=== PATIENT | female | born 1960 | race Caucasian/White ===

== ENCOUNTER 2018-05-12 15:30 | Inpatient (IN) | payer OTHER, SELFPAY ==
[2018-05-12 15:45] VITALS: BP 143/74; PULSE 90; RESP 16; TEMP 37.3; O2SAT 100
[2018-05-12 15:52] VITALS: BMI 17.2
--- NOTE | 2018-05-12 18:38 | PM.HP.1 ---
History of Present Illness Date Patient Seen: 05/12/18 Chief complaint: CELLULITIS Narrative: Shyla Bender is a 57-year-old female with a past medical history significant for collagenous colitis status post several courses of glucocorticoids and depression who was directly admitted from her PCP Dr. Jammie Hamm's office for right leg cellulitis failed outpatient treatment. The patient was bit by a Iranian bulldog 13 days ago while at a dog park. She reports that it began getting red and tender so she went to Dr. Hamm's office who she is established with and was started on Augmentin 05/09/2018. She has not missed a dose. She endorses throbbing severe pain with standing but has very little pain associated while sitting or lying down. She showed me pictures of her cellulitis the last 2 days for which the progression is apparent. She returned to her PCP who instructed the patient to go to the ED for which she was hesitant, prompting the request for direct admission. She endorses headache, malaise, and mild nausea that she relates to Augmentin. She has history of collagenous colitis and usually has 2 bowel movements per day. She reports increased frequency and now watery diarrhea 5x/day. She has no history of C difficile colitis. She has been treated for collagenous colitis with several courses of glucocorticoids with the most recent 4 months ago. She has no other issues or complaints. She denies chest pain, shortness of breath, abdominal pain, vomiting, fever, chills, dysuria, or constipation. Patient History Medical History Anxiety (Acute) Collagenous colitis (Acute) Depression (Acute) Surgical History H/O esophagogastroduodenoscopy (Acute) History of appendectomy (Acute) History of section (Acute) Hx of colonoscopy (Acute) Family History Other Colitis, chronic, ulcerative IBS (irritable bowel syndrome) Social History household members: spouse Smoking Status: Never smoker alcohol intake: current Family & Social History Family History Father Idiopathic pulmonary fibrosis Mother Rheumatoid arthritis Ductal carcinoma in situ (DCIS) of breast Other Colitis, chronic, ulcerative IBS (irritable bowel syndrome) Social History: household members spouse Prior Living Arrangements House The patient is been for 14 years. She has 2 adult sons who were both healthy. She recently moved to the area from [place], [place]. 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 Safety & Behavioral: Feels Safe in Current Yes Environment Been Physically Hurt or No Threatened By a Person Suicidal Ideation Description None Suicide Plan Description No Plan Tobacco & Substance use: Smoking Status Never smoker alcohol intake current alcohol intake frequency 2 drinks per day Meds Home Medications Medication Instructions Recorded Confirmed Type Augmentin 875 mg PO BID 05/12/18 05/12/18 History bupropion HCl 75 mg/day PO DAILY 05/12/18 05/12/18 History Allergies Allergy/AdvReac Type Severity Reaction Status Date / Time No Known Drug Allergies Allergy Verified 05/12/18 16:15 Review of Systems Review of Systems A 10 system comprehensive review of systems was conducted with the patient and found to be negative except as above in the History of Present Illness. Exam Vital Signs (past 8 hours): - 05/12/18 15:45 Temperature 99.1 F Pulse Rate 90 Respiratory Rate 16 Blood Pressure 143/74 H Pulse Oximetry 100 Oxygen Flow Rate 0 Narrative Exam Narrative: General: Middle-aged petite female sitting in bed and in no acute distress, well-developed, well-nourished, appropriately interactive. HEENT: Normocephalic, atraumatic. External ears without defect. Pupils equal, round, and reactive to light. Anicteric sclerae, moist conjunctivae, and no lid lag. Oropharynx free of erythema and cobble stoning with moist mucosa. Neck: Supple with full range of motion. No jugular venous distension. No bruits. No lymphadenopathy or thyromegaly. Cardiovascular: Regular rate and rhythm without murmurs, rubs, or gallops appreciated Pulmonary: Clear to auscultation bilaterally without crackles, wheezes, or rhonchi. Normal respiratory effort with no use of accessory muscles. Abdomen: Soft, bowel sounds present, nontender, nondistended. No hepatosplenomegaly or masses appreciated. Extremities: No clubbing, cyanosis, or edema. Erythematous and circular area on right lateral leg that is approximately 4 cm in diameter, indurated with mild fluctuance, significantly tender to palpation small scab distally were puncture occurred. Traced by nursing staff. Skin: Normal temperature, turgor, and texture; no rash, ulcers, or subcutaneous nodules appreciated. Neurological: Cranial nerves grossly intact. Normal muscle strength, tone, and bulk. Reflexes, coordination, and sensory function within normal limits. No known gait impairment. Psychiatric: Normal mood and affect. Alert and oriented to person, place, and time. Assessment & Plan Assessment & Plan narrative: Shyla Bender is a 57-year-old female with a past medical history significant for collagenous colitis status post several courses of glucocorticoids and depression who was directly admitted from her PCP Dr. Jammie Hamm's office for right leg cellulitis failed outpatient treatment. 1. Acute non-purulent cellulitis with possible fluid collection vs. abscess, secondary to canine bite, present on admission. Active. -Patient was bitten by a dog and the dog park 13 days ago and was started on Augmentin on 05/09/2018 by PCP with progression of erythema and increased tenderness to palpation. -Ordered ceftriaxone 2 g daily and clindamycin 600 mg every 8 hr. In addition, ordered probiotic 3 times daily with meals. -Ordered C difficile as patient has had increased 5x/day watery diarrhea since starting Augmentin. -Ordered wound care consult however not available on the weekends. -Ordered surgical consult for possible I&D vs conservative treatment as there is an indurated area with mild fluctuance likely circulation representative of fluid collection. We appreciate their time and recommendations. -Continue conservative treatment with elevation and ice. 2. Depression, chronic, present on admission. Stable. -Continue Wellbutrin 75 mg. Depression well controlled. 3. Alcohol use, chronic, present on admission. Stable. -Patient reports 2 glasses of wine nightly. Recommended cutting back to 1 glass per night. 4. Underweight, chronic, present on admission. Stable. -Patient reports she has been petite all her life and her twin sister is identical in size and weight. Patient reports good appetite. She does exercise 3-4 times per week but not excessively. Likely patient's normal body habitus. Patient is admitted under inpatient status with expected length of stay greater than 2 midnights due to severity of presenting symptoms, risk of adverse event, and complexity of treatment plan. Quality VTE Deep Vein Thrombosis/Pulmonary Embolism Present on Admission: No
[2018-05-12] MEDS: CLINDAMYCIN 600 MG/50 ML PIGGYBACK 50 MG IV (19:07)
--- NOTE | 2018-05-12 19:07 | PM.CN ---
History of Present Illness Date Patient Seen: 05/12/18 Time Patient Seen: 19:07 Chief complaint: CELLULITIS Reason for consult: dog bite Requesting provider: Cecilia Joseph Narrative: 57-year-old female who suffered a dog bite 13 days ago and the local dog park to her right calf region. Dog was not known to her but did belong to another individual at the dog park. Breed was a Arabic bulldog. She suffered a single bite. No significant bleeding. She had localized pain and tenderness which became slightly more pronounced in the last 4 or 5 days. She was seen by her primary care physician in the clinic who prescribed Augmentin. She has been on the Augmentin for 3 days then return to the office with no significant change in her symptoms. She was directly admitted from her physician's office earlier today for planned intravenous antibiotics. On further history currently patient denies any fever or chills. No nausea or vomiting. Her major complaint remains throbbing pain around the right calf when she is in a standing position or ambulating. No drainage from the area. No tissue loss at the time of the event. She suffered no other injuries. She is unaware of the dog's vaccination status. [facility] Medical History Anxiety (Acute) Collagenous colitis (Acute) Surgical History History of appendectomy (Acute) History of section (Acute) Family History Other Colitis, chronic, ulcerative IBS (irritable bowel syndrome) Social History household members: spouse Smoking Status: Never smoker alcohol intake: current Family History Other Colitis, chronic, ulcerative IBS (irritable bowel syndrome) Social History household members: spouse Smoking Status: Never smoker alcohol intake: current Meds Home Medications Medication Instructions Recorded Confirmed Type Augmentin 875 mg PO BID 05/12/18 05/12/18 History bupropion HCl 75 mg/day PO DAILY 05/12/18 05/12/18 History Allergies Allergy/AdvReac Type Severity Reaction Status Date / Time No Known Drug Allergies Allergy Verified 05/12/18 16:15 Review of Systems Review of Systems All systems reviewed & are unremarkable except as noted in HPI and below Exam Vital Signs (past 8 hours): - 05/12/18 15:45 Temperature 99.1 F Pulse Rate 90 Respiratory Rate 16 Blood Pressure 143/74 H Pulse Oximetry 100 Oxygen Flow Rate 0 Narrative Exam Narrative: Well-nourished well-developed female sitting comfortably in bed in no acute distress. Alert oriented x3. She is in good spirits. She does not appear acutely ill. She is seen with the assistance of the attending nurseTrish Patient is afebrile with no tachycardia. Regular rate and rhythm She has full range of motion of all extremities without any deficits. Light touch is grossly intact throughout the entire right foot, ankle, calf, and knee. Dorsiflexion of the right ankle is normal. Right calf is otherwise soft without significant edema. She has an approximately 4 x 5 cm erythematous lesion consistent with bite on the right posterolateral calf with no tissue defect. No necrosis of the skin. Minimal cellulitis. Center of the lesion shows some mild ecchymosis and underlying probable hematoma but no discrete fluctuance. Border of the lesion has been marked. Objective Labs Result Diagrams: 05/12/18 19:02 05/12/18 19:02 Labs: No radiographic studies for review Above laboratory studies pending Assessment & Plan Assessment & Plan narrative: 57-year-old female now nearly 2 weeks status post dog bite injury to the right calf with old small hematoma and overlying inflammatory reaction currently. At the moment her findings and symptoms are most consistent with hematoma superficially. I appreciate no other injury from a neurovascular standpoint. Certainly no evidence of compartment syndrome or other issues. She has no necrotic tissue requiring sharp debridement at the moment. I do not appreciate an obvious abscess that requires incision and drainage. However, I counseled her that she may not respond to the intravenous antibiotics she will receive during this admission in which case we would need to drain the area to facilitate healing. If the lesion improves then obviously we would continue with non operative management. I also advised her that there is a small possibility the hematoma could develop into a potential abscess with surrounding cellulitis despite intravenous antibiotics and incision and drainage with debridement and local wound care would be indicated under those circumstances. If her tetanus is not current that she may require immunization during this admission as well. All questions were otherwise answered to her satisfaction, and she voiced understanding. We will continue to follow her during this admission.
[2018-05-12 19:08] LABS: Add Manual Diff / Slide Review NO; Basophils Absolute Auto 100 /uL (0-100); Basophils Percent Auto 0.7 % (0-2); Eosinophils Absolute Auto 200 /uL (0-450); Hematocrit 38.5 % (36-46); Hemoglobin 12.9 g/dL (12.0-16.0); Lymphocytes Absolute Auto 1100 /uL (1100-4500); Lymphocytes Percent Auto 12.9 % (25-40); Mean Corpuscular HGB Conc 33.5 % (30-36); Mean Corpuscular Hemoglobin 32.2 PG (26-34); Mean Corpuscular Volume 96.3 fL (80-100); Monocytes Absolute Auto 800 /uL (0-900); Monocytes Percent Auto 9.6 % (3-14); Neutrophils Absolute Auto 6300 /uL (1500-7000); Neutrophils Percent Auto 74.8 % (50-75); Platelet Count 169 X10^3/uL (150-400); Red Blood Cell Count 3.99 X10^6/uL (4.0-5.2); Red Cell Distribution Width 12.8 % (11.6-14.8); White Blood Cell Count 8.4 X10^3/uL (4.5-11.0)
[2018-05-12 19:25] LABS: Alanine Aminotransferase 38 IU/L (9-52); Albumin 4.4 g/dL (3.5-5.0); Albumin Globulin Ratio 1.5 (1.0-2.8); Alkaline Phosphatase 76 U/L (38-126); Aspartate Aminotransferase 34 IU/L (14-36); BUN Creatinine Ratio 24.3 (6-22); Bilirubin Total 0.7 mg/dL (0.2-1.3); Blood Urea Nitrogen 17 mg/dL (7-17); Calcium 9.2 mg/dL (8.4-10.2); Carbon Dioxide 27 mmol/L (22-32); Chloride 100 mmol/L (98-107); Estimated Glomerular Filt Rate > 60.0 mL/min (>60); Glucose 91 mg/dL (70-100); HEMOLYSIS < 15 (0-50); Potassium 3.9 mmol/L (3.4-5.1); Sodium 138 mmol/L (137-145); Total Protein 7.4 g/dL (6.3-8.2)
[2018-05-12 19:35] VITALS: BP 118/62; PULSE 85; RESP 16; TEMP 37.5; O2SAT 100
[2018-05-12 19:49] LABS: Procalcitonin < 0.05 ng/mL (<0.5)
[2018-05-12] MEDS: CEFTRIAXONE 2 GM/50 ML FROZ.PIGGY IV (20:07)
[2018-05-12] MEDS: SODIUM CHLORIDE 0.9% FLUSH 10 ML IV (21:08)
[2018-05-12] MEDS: HEPARIN 5,000 UNIT/ML VIAL 5000 UNIT SUBCUT (21:08)
[2018-05-12] MEDS: IBUPROFEN 600 MG TABLET PO (21:47)
--- NOTE | 2018-05-12 21:52 | PC.NURSE ---
Pt direct admit from clinic @ 1600 to room 211. Pt is awake, alert and conversant. Admission assessment completed by EMILY Yo. Dr. Joseph in to see patient followed by Dr. Jacob, followed by lab. IV started and antibiotics infusing as ordered. Pt provided with evening meal. Calf scd to left LE only d/t pain RLE. RLE elevated per Dr. Joseph on pillows x 2 and ice pack applied per Dr. Joseph's verbal order. Ibuprofen to manage pain.
[2018-05-12 23:00] VITALS: BP 119/58; PULSE 74; RESP 16; TEMP 36.6; O2SAT 98; O2SAT 99
[2018-05-13] VITALS (7 sets, daily range): BP systolic 105–121; BP diastolic 61–69; PULSE 75–85; RESP 14–20; TEMP 36.7–37.1; O2SAT 98–100
[2018-05-13] MEDS: CLINDAMYCIN 600 MG/50 ML PIGGYBACK 50 MG IV ×3 (02:13→18:15)
--- NOTE | 2018-05-13 05:44 | PC.NURSE ---
NOC SHIFT Patient resting comfortably this shift. Denies pain while resting in bed with leg elevated. Patient states pain increases with standing and ambulation. Cellulitis remains within the boundary lines drawn by previous RNs. VSS, No acute distress. Patient denies need for pain medication. Will continue to monitor.
[2018-05-13 06:22] LABS: Add Manual Diff / Slide Review NO; Basophils Absolute Auto 0 /uL (0-100); Basophils Percent Auto 0.7 % (0-2); Eosinophils Absolute Auto 200 /uL (0-450); Eosinophils Percent Auto 3.7 % (2-4); Hematocrit 37.4 % (36-46); Hemoglobin 12.8 g/dL (12.0-16.0); Lymphocytes Absolute Auto 1100 /uL (1100-4500); Lymphocytes Percent Auto 21.4 % (25-40); Mean Corpuscular HGB Conc 34.3 % (30-36); Mean Corpuscular Hemoglobin 32.8 PG (26-34); Mean Corpuscular Volume 95.6 fL (80-100); Monocytes Absolute Auto 500 /uL (0-900); Monocytes Percent Auto 10.1 % (3-14); Neutrophils Absolute Auto 3400 /uL (1500-7000); Neutrophils Percent Auto 64.1 % (50-75); Platelet Count 160 X10^3/uL (150-400); Red Blood Cell Count 3.91 X10^6/uL (4.0-5.2); Red Cell Distribution Width 12.9 % (11.6-14.8); White Blood Cell Count 5.3 X10^3/uL (4.5-11.0)
--- NOTE | 2018-05-13 06:22 | PM.PN.1 ---
Subjective Date Patient Seen: 05/13/18 Interval history: Shyla Bender is a 57-year-old female with a past medical history significant for collagenous colitis status post several courses of glucocorticoids and depression who was directly admitted from her PCP Dr. Jammie Hamm's office for right leg cellulitis failed outpatient treatment. The patient is resting in bed comfortably. She reports her left leg wound has improved. She also no longer has severe pain only mild discomfort with standing and ambulation. She denies headache, shortness of breath, chest pain, abdominal pain, nausea, vomiting, fever, chills, dysuria, or constipation. She does have chronic diarrhea which has slowed down. C. difficile is negative. She is voiding and eliminating without difficulty. She is up ambulating without assistance. Exam Vital Signs (past 8 hours): - 05/12/18 23:00 05/13/18 03:50 Temperature 97.9 F 98.7 F Pulse Rate 74 76 Respiratory Rate 16 14 Blood Pressure 119/58 L 121/69 Pulse Oximetry 99 99 Oxygen Flow Rate 0 Narrative Exam Narrative: General: Middle-aged petite female sitting in bed and in no acute distress, well-developed, well-nourished, appropriately interactive. HEENT: Normocephalic, atraumatic. External ears without defect. Pupils equal, round, and reactive to light. Anicteric sclerae, moist conjunctivae, and no lid lag. Oropharynx free of erythema and cobble stoning with moist mucosa. Neck: Supple with full range of motion. No jugular venous distension. No bruits. No lymphadenopathy or thyromegaly. Cardiovascular: Regular rate and rhythm without murmurs, rubs, or gallops appreciated Pulmonary: Clear to auscultation bilaterally without crackles, wheezes, or rhonchi. Normal respiratory effort with no use of accessory muscles. Abdomen: Soft, bowel sounds present, nontender, nondistended. No hepatosplenomegaly or masses appreciated. Extremities: No clubbing, cyanosis, or edema. Markedly improved erythema of bite wound on right lateral leg that is approximately 4 cm in diameter, indurated with mild fluctuance that is improved and clearly hematoma today now the erythema is dissipating. Continues to be significantly tender to palpation. Small scab distally were puncture occurred. Traced by nursing staff. Skin: Normal temperature, turgor, and texture; no rash, ulcers, or subcutaneous nodules appreciated. Neurological: Cranial nerves grossly intact. Normal muscle strength, tone, and bulk. Reflexes, coordination, and sensory function within normal limits. No known gait impairment. Psychiatric: Normal mood and affect. Alert and oriented to person, place, and time. Objective Labs Result Diagrams: 05/13/18 05:58 05/13/18 05:58 Labs: Laboratory Results - last 24 hr 05/12/18 05/12/18 05/12/18 19:02 19:02 19:02 WBC 8.4 RBC 3.99 L Hgb 12.9 Hct 38.5 MCV 96.3 MCH 32.2 MCHC 33.5 RDW 12.8 Plt Count 169 Neut % (Auto) 74.8 Lymph % (Auto) 12.9 L [place] % (Auto) 9.6 Eos % (Auto) 2.0 Baso % (Auto) 0.7 Neut # (Auto) 6300 Lymph # (Auto) 1100 [place] # (Auto) 800 Eos # (Auto) 200 Baso # (Auto) 100 Sodium 138 Potassium 3.9 Chloride 100 Carbon Dioxide 27 BUN 17 Creatinine 0.70 Estimated GFR > 60.0 BUN/Creatinine Ratio 24.3 H Glucose 91 Calcium 9.2 Total Bilirubin 0.7 AST 34 ALT 38 Alkaline Phosphatase 76 Total Protein 7.4 Albumin 4.4 Globulin 3.0 Albumin/Globulin Ratio 1.5 Procalcitonin < 0.05 Assessment & Plan Assessment & Plan narrative: Shyla Bender is a 57-year-old female with a past medical history significant for collagenous colitis status post several courses of glucocorticoids and depression who was directly admitted from her PCP Dr. Jammie Hamm's office for right leg cellulitis failed outpatient treatment. 1. Acute mild cellulitis and canine bite wound, present on admission. Active. -Patient was bitten by a dog and the dog park 13 days ago and was started on Augmentin on 05/09/2018 by PCP with progression of erythema and increased tenderness to palpation. -WBC within normal limits and procalcitonin negative. Afebrile. -Continue ceftriaxone 2 g daily, clindamycin 600 mg every 8 hr, and probiotic 3 times daily with meals. -Patient has had increased 5x/day watery diarrhea since starting Augmentin. C. difficile negative. -Ordered wound care consult, however, not available on the weekends. -General surgery consulted for possible I&D and recommend conservative treatment for now. We appreciate their time and recommendations. -Continue conservative treatment with elevation and ice. 2. Depression, chronic, present on admission. Stable. -Continue Wellbutrin 50 mg. Depression well controlled. 3. Alcohol use, chronic, present on admission. Stable. -Patient reports 2 glasses of wine nightly. Recommended cutting back to 1 glass per night. 4. Underweight, chronic, present on admission. Stable. -Patient reports she has been petite all her life and her twin sister is identical in size and weight. Patient reports good appetite. She does exercise 3-4 times per week but not excessively. Likely patient's normal body habitus. -[employer] consult ordered. Disposition: Likely to discharge home tomorrow on oral antibiotics. Quality VTE Deep Vein Thrombosis/Pulmonary Embolism Present on Admission: No
[2018-05-13 06:46] LABS: BUN Creatinine Ratio 24.3 (6-22); Blood Urea Nitrogen 17 mg/dL (7-17); Calcium 9.2 mg/dL (8.4-10.2); Carbon Dioxide 29 mmol/L (22-32); Chloride 103 mmol/L (98-107); Estimated Glomerular Filt Rate > 60.0 mL/min (>60); Glucose 98 mg/dL (70-100); HEMOLYSIS < 15 (0-50); Potassium 4.6 mmol/L (3.4-5.1); Sodium 139 mmol/L (137-145)
[2018-05-13 07:06] LABS: Procalcitonin < 0.05 ng/mL (<0.5)
[2018-05-13] MEDS: LACTOBACILLUS ACIDOPHILUS TABLET 1 EACH PO ×3 (07:49→16:49)
[2018-05-13] MEDS: HEPARIN 5,000 UNIT/ML VIAL 5000 UNIT SUBCUT ×2 (08:21→20:54)
[2018-05-13] MEDS: buPROPion 100 MG TABLET 50 MG PO (08:21)
[2018-05-13] MEDS: IBUPROFEN 600 MG TABLET PO (08:22)
[2018-05-13] MEDS: SODIUM CHLORIDE 0.9% FLUSH 10 ML IV ×2 (10:08→21:01)
--- NOTE | 2018-05-13 10:09 | PM.PN.1 ---
Subjective Date Patient Seen: 05/13/18 Time Patient Seen: 10:09 Interval history: Patient states that her pain has improved since admission last evening. Still having some localized discomfort when she is ambulatory however. No numbness or tingling. No dysesthesias otherwise in the lower extremity or foot. No weakness. No drainage from the area. No subjective fever or chills. She slept well. No chest pain or shortness of breath. Exam Vital Signs (past 8 hours): - 05/13/18 03:50 05/13/18 07:00 05/13/18 08:15 Temperature 98.7 F 98.1 F Pulse Rate 76 85 Respiratory Rate 14 16 Blood Pressure 121/69 108/62 Pulse Oximetry 99 98 100 Oxygen Delivery Method Room Air Oxygen Flow Rate 0 Narrative Exam Narrative: Well-nourished well-developed female sitting comfortably in bed in no acute distress. Alert oriented x3. She is in good spirits. Focused examination of the right calf demonstrates no significant cellulitis. Minimal erythema around the probable hematoma in the posterior lateral region. The area is basically ecchymotic and not particularly cellulitic. Previously marked boundaries are intact and the initial mild erythema present yesterday is receding. Skin remains intact but obviously edematous over the palpable fluid collection which I suspect is a liquified hematoma. No drainage. She is appropriately tender. Calf is otherwise quite soft. She has full range of motion of the ankle and the foot. Right dorsal pedis pulses intact and easily palpable. No edema. Objective Labs Result Diagrams: 05/13/18 05:58 05/13/18 05:58 Labs: Laboratory Results - last 24 hr 05/12/18 05/12/18 05/12/18 19:02 19:02 19:02 WBC 8.4 RBC 3.99 L Hgb 12.9 Hct 38.5 MCV 96.3 MCH 32.2 MCHC 33.5 RDW 12.8 Plt Count 169 Neut % (Auto) 74.8 Lymph % (Auto) 12.9 L [place] % (Auto) 9.6 Eos % (Auto) 2.0 Baso % (Auto) 0.7 Neut # (Auto) 6300 Lymph # (Auto) 1100 [place] # (Auto) 800 Eos # (Auto) 200 Baso # (Auto) 100 Sodium 138 Potassium 3.9 Chloride 100 Carbon Dioxide 27 BUN 17 Creatinine 0.70 Estimated GFR > 60.0 BUN/Creatinine Ratio 24.3 H Glucose 91 Calcium 9.2 Total Bilirubin 0.7 AST 34 ALT 38 Alkaline Phosphatase 76 Total Protein 7.4 Albumin 4.4 Globulin 3.0 Albumin/Globulin Ratio 1.5 Procalcitonin < 0.05 05/13/18 05/13/18 05/13/18 05:58 05:58 05:58 WBC 5.3 RBC 3.91 L Hgb 12.8 Hct 37.4 MCV 95.6 MCH 32.8 MCHC 34.3 RDW 12.9 Plt Count 160 Neut % (Auto) 64.1 Lymph % (Auto) 21.4 L [place] % (Auto) 10.1 Eos % (Auto) 3.7 Baso % (Auto) 0.7 Neut # (Auto) 3400 Lymph # (Auto) 1100 [place] # (Auto) 500 Eos # (Auto) 200 Baso # (Auto) 0 Sodium 139 Potassium 4.6 Chloride 103 Carbon Dioxide 29 BUN 17 Creatinine 0.70 Estimated GFR > 60.0 BUN/Creatinine Ratio 24.3 H Glucose 98 Calcium 9.2 Total Bilirubin AST ALT Alkaline Phosphatase Total Protein Albumin Globulin Albumin/Globulin Ratio Procalcitonin < 0.05 white blood cell count and procalcitonin levels were completely unremarkable. Assessment & Plan Assessment & Plan narrative: 57-year-old female with probable small liquified hematoma status post canine bite injury to the right posterior lateral calf exactly 2 weeks ago now. I do not suspect a significant abscess. The tissue over the injury is intact. She has no evidence of sepsis or compartment syndrome or any other complications at this point. Currently I anticipate that the wound will slowly heal although she does understand there is a small possibility that the overlying skin could continue to progress to necrosis requiring sharp debridement at that time. Furthermore, she may manifest signs of obvious infection which would require incision and drainage as previously mentioned to her yesterday. I would recommend ongoing conservative measures only with the IV antibiotics as well. She may otherwise be ambulatory ad abram from my perspective. I discussed all the above with the patient as well as her attending physician. All questions were answered to the patient's satisfaction, and she voiced understanding. Quality VTE Deep Vein Thrombosis/Pulmonary Embolism Present on Admission: No
--- NOTE | 2018-05-13 10:43 | PC.NURSE ---
SENT CDIFF SAMPLE FOR TITER
[2018-05-13 11:38] LABS: Clostridium Difficile Tox PCR Negative for C. diff
--- NOTE | 2018-05-13 12:16 | CM.DANOTE ---
DCP: Case received, EMR reviewed and met with patient. Introduced self and role. DCP template completed with information currently available. Patient is a 57 year old female who admitted yesterday afternoon to the care of the hospitalist team. PCP: Dr. Hamm. Payer: confirmed: [facility]. Patient came to hospital secondary to concerns about a recent dog bite. Met with patient in room. Pleasant, and alert and oriented. She stated that she had been at a dog park, and a bull dog was attempting to bite her dog. When she attempted to stop it, the dog bit her in the leg. The area has started showing signs of infection. Patient holds diagnosis of Cellulitis. Patient is , confirmed with her. Her spouse's name is Chapincito Ray. Patient does have insurance. Showed this outpatient case manager her [facility] card. She also stated that her primary doctor is Dr. Hamm. She is originally from [place]. She is independent at home. P: Patient should be able to return home after her infection clears up, and when she is done with her IV antibiotics. No noted barriers upon discharge. Bette Garcia RN/[employer]
[2018-05-13] MEDS: ACETAMINOPHEN 325 MG TABLET 650 MG PO (14:22)
[2018-05-13] MEDS: CEFTRIAXONE 2 GM/50 ML FROZ.PIGGY IV (19:32)
--- NOTE | 2018-05-13 23:00 | PC.NURSE ---
Pt's ankle is feeling much better, ambulating as tolerated on her own. Pt denies pain, rgt lower ankle was a little puffy. Pt. elevates rgt leg on 3 pillows above heart and uses ice for swelling.
[2018-05-14 02:15] VITALS: BP 113/66; PULSE 72; RESP 14; TEMP 36.5; O2SAT 98
[2018-05-14] MEDS: IBUPROFEN 600 MG TABLET PO (02:34)
[2018-05-14] MEDS: CLINDAMYCIN 150 MG CAPSULE 600 MG PO ×2 (03:22→11:09)
--- NOTE | 2018-05-14 03:24 | PC.NURSE ---
IV DC'D Patient complaining of continued IV site pain, burning. IV site discontinued at 0215. Unable to obtain new access after 3 attempts, 2 by this RN and 1 by Kenyatta Vann RN. Patient's veins blew or rolled with insertion attempts. Spoke with DAVID Alcantar about patient's antibiotic and possiblility of discharge in the morning per patient's progress note. One time dose for oral antibiotic ordered and given to patient. At this time patient remains without IV access.
[2018-05-14 09:00] VITALS: BP 108/54; PULSE 89; RESP 18; TEMP 36.6; O2SAT 99
[2018-05-14] MEDS: LACTOBACILLUS ACIDOPHILUS TABLET 1 EACH PO ×2 (09:08→11:08)
[2018-05-14] MEDS: buPROPion 100 MG TABLET 50 MG PO (09:09)
[2018-05-14] MEDS: HEPARIN 5,000 UNIT/ML VIAL 5000 UNIT SUBCUT (09:10)
--- NOTE | 2018-05-14 10:29 | PM.PN.1 ---
Subjective Date Patient Seen: 05/14/18 Time Patient Seen: 10:29 Interval history: Patient feeling much better today. She states she is having minimal pain with standing and ambulation. She is actually walking through the halls without any issues. She clearly informs me that she would have been unable to do so even 2 days ago prior to admission due to discomfort. Denies any progressive edema of the lower extremity. No numbness or tingling. Tolerating a regular diet. No subjective fever or chills. Exam Vital Signs (past 8 hours): - 05/14/18 09:00 Temperature 97.9 F Pulse Rate 89 Respiratory Rate 18 Blood Pressure 108/54 L Pulse Oximetry 99 Oxygen Delivery Method Room Air Oxygen Flow Rate 0 Narrative Exam Narrative: Patient is sitting comfortably in bedside chair in no acute distress. Alert oriented x3. She is in good spirits. focused examination of the right lower extremity shows the hematoma at the right posterolateral calf to be stable. The ecchymoses remain unchanged but the skin is intact without significant edema. No necrosis. No significant cellulitis. Objective Labs Result Diagrams: 05/13/18 05:58 05/13/18 05:58 Labs: Laboratory Results - last 24 hr 05/13/18 10:10 C. difficile Tox (PCR) Negative for c. diff Assessment & Plan Assessment & Plan narrative: 57-year-old female with slowly healing hematoma of the right calf following canine bite injury over 2 weeks ago now. I see no evidence of abscess or significant cellulitis. No significant infectious or septic complications. In my opinion, she does not require incision and drainage of the hematoma at this point. However, I clearly counseled her that there would be the small possibility that she could still progressed to abscess or even developed necrotic tissue requiring sharp debridement and drainage. She understands to call or return if she has any issues with such. In the interim I will return her to the care of her primary physicians in the medicine department. We would be happy to see her at any time for recurrent problems, but from my perspective she could be discharged home today on oral antibiotics. All questions were otherwise answered to the patient's satisfaction, and she voiced understanding. Quality VTE Deep Vein Thrombosis/Pulmonary Embolism Present on Admission: No
[2018-05-14 10:42] VITALS: O2SAT 99
--- NOTE | 2018-05-14 10:51 | P.DS_ITS ---
History of Present Illness Date Patient Seen: 05/12/18 Chief complaint: CELLULITIS Narrative: Written by myself Dr. Joseph: Shyla Bender is a 57-year-old female with a past medical history significant for collagenous colitis status post several courses of glucocortico ids and depression who was directly admitted from her PCP Dr. Jammie Hamm's office for right leg cellulitis failed outpatient treatment. The patient was bit by a [place] bulldog 13 days ago while at a dog park. She reports that it began getting red and tender so she went to Dr. Hamm's office who she is established with and was started on Augmentin 05/09/2018. She has not missed a dose. She endorses throbbing severe pain with standing but has very little pain associated while sitting or lying down. She showed me pictures of her cellulitis the last 2 days for which the progression is apparent. She returned to her PCP who instructed the patient to go to the ED for which she was hesitant, prompting the request for direct admission. She endorses headache, malaise, and mild nausea that she relates to Augmentin. She has history of collagenous colitis and usually has 2 bowel movements per day. She reports increased frequency and now watery diarrhea 5x/day. She has no history of C dif ficile colitis. She has been treated for collagenous colitis with several courses of glucocorticoids with the most recent 4 months ago. She has no other issues or complaints. She denies chest pain, shortness of breath, abdominal pain, vomiting, fever, chills, dysuria, or constipation. Discharge Providers Date of admission: 05/12/18 15:30 Discharge Date: 05/14/18 Consults: 05/12/18 16:08 Consult to Dietitian, Adult Routine Comment: Reason For Exam: Pt has low BMI 05/12/18 18:03 Consult to Wound Care Routine Comment: Consulting Provider: [facility] 05/12/18 18:38 Consult to General Surgery Routine Comment: Consulting Provider: Haresh Jacob Reason for consultation: possible I&D of right leg abscess/fluid nina (direct adm) Has provider been notified: Yes Discharge provider: Cecilia Joseph DO Summary Discharge Diagnosis: 1. Acute mild cellulitis and small infected hematoma, secondary to canine bite, present on admission. resolving. 2. Depression, chronic, present on admission. Stable. 3. Alcohol use, chronic, present on admission. Stable. 4. Underweight, chronic, present on admission. Stable. Hospital Course: Shyla Bender is a 57-year-old female with a past medical history significa nt for collagenous colitis status post several courses of glucocorticoids and depression who was directly admitted from her PCP Dr. Jammie Hamm's office for right leg cellulitis failed outpatient treatment. 1. Acute mild cellulitis and small infected hematoma, secondary to canine bite, present on admission. resolving. -Patient was bitten by a dog and the dog park 13 days ago and was started on Augmentin on 05/09/2018 by PCP with progression of erythema and increased tenderness to palpation. -WBC within normal limits and procalcitonin negative. Afebrile. -Continued ceftriaxone 2 g daily and clindamycin 600 mg every 8 hr during hospitalization. Discharged with clindamycin 600 mg every 8 hr and levofloxacin 750 mg for 5 more days to complete a 7 day course. Also continued probiotic 3 times daily with meals to keep GI adonis intact. -Patient has had increased 5x/day watery diarrhea since starting Augmentin. C. difficile negative. -Ordered wound care consult, however, not available on the weekends. -Continued conservative treatment with elevation and ice. -General surgery consulted for possible I&D and recommend conservative treatment and cleared patient for discharge. We appreciate their time and recommendations. -Patient vaccinated with tetanus per PCP last week. Discussed rabies with Dr. Pickard of Infectious Disease and Dr. Driver of ED. Patient was bitten by a domesticated [place] bulldog and bite was provoked therefore rabies is very unlikely. Counseled the patient regarding rabies. Do not recommend rabies vaccination. Informed her that she may call the Health Department for further recommendations and information. 2. Depression, chronic, present on admission. Stable. -Continued Wellbutrin 50 mg. Depression well controlled. 3. Alcohol use, chronic, present on admission. Stable. -Patient reports 2 glasses of wine nightly. Recommended cutting back to 1 glass per night. 4. Underweight, chronic, present on admission. Stable. -Patient reports she has been petite all her life and her twin sister is identical in size and weight. Patient reports good appetite. She does exercise 3-4 times per week but not excessively. Likely patient's normal body habitus. -[employer] consult ordered but not provided as they are not available on weekends. Status at Discharge Functional status at discharge: independent ambulation Overall status at discharge: patient is progressing back to baseline Exam Vital Signs (past 8 hours): - 05/14/18 09:00 05/14/18 10:42 Temperature 97.9 F Pulse Rate 89 Respiratory Rate 18 Blood Pressure 108/54 L Pulse Oximetry 99 99 Oxygen Delivery Method Room Air Oxygen Flow Rate 0 Narrative Exam Narrative: General: Middle-aged petite female sitting in bed and in no acute distress, well-developed, well-nourished, appropriately interactive. HEENT: Normocephalic, atraumatic. External ears without defect. Pupils equal, round, and reactive to light. Anicteric sclerae, moist conjunctivae, and no lid lag. Oropharynx free of erythema and cobble stoning with moist mucosa. Neck: Supple with full range of motion. No jugular venous distension. No bruits. No lymphadenopathy or thyromegaly. Cardiovascular: Regular rate and rhythm without murmurs, rubs, or gallops appreciated Pulmonary: Clear to auscultation bilaterally without crackles, wheezes, or rhonchi. Normal respiratory effort with no use of accessory muscles. Abdomen: Soft, bowel sounds present, nontender, nondistended. No hepatosplenomegaly or masses appreciated. Extremities: No clubbing, cyanosis, or edema. Markedly improved erythema of bite wound on right lateral leg that was 4 cm in diameter and now 2-3 cm, previously indurated with mild fluctuance that is resolved. Now clearly hematoma since erythema has resolved. Mildly tender to palpation whihc is improved. Small scab distally where puncture occurred. Traced by nursing staff and retracting inside margin. Skin: Normal temperature, turgor, and texture; no rash, ulcers, or subcutaneous nodules appreciated. Neurological: Cranial nerves grossly intact. Normal muscle strength, tone, and bulk. Reflexes, coordination, and sensory function within normal limits. No known gait impairment. Psychiatric: Normal mood and affect. Alert and oriented to person, place, and time. Objective Labs Result Diagrams: 05/13/18 05:58 05/13/18 05:58 Labs: Laboratory Results - last 24 hr 05/13/18 10:10 C. difficile Tox (PCR) Negative for c. diff Discharge Plan Discharge Plan Patient Disposition: Home Discharge comment: You are being discharged home. Please follow-up with your PCP, Dr. Jammie Hamm, in 1 week regarding your hospitalization. You were prescribed 2 antibiotics to take for 5 more days, clindamycin 600 mg every 8 hr and levofloxacin 750 mg daily. You were also prescribed a probiotic to take 3 times a day with meals to help keep and restore your GI adonis. Discharge Med Rec/Prescriptions Prescriptions: New clindamycin HCl 150 mg Capsule 600 mg PO Q8HR 5 Days Qty: 15 RF: 0 levofloxacin 250 mg Tablet 750 mg PO DAILY Qty: 5 RF: 0 Bacid (L. acidophilus) 1 billion cell- 250 mg Tablet 1 ea PO TIDWM Qty: 90 RF: 0 Continued bupropion HCl 50 mg/day PO DAILY RF: 0 Discontinued Augmentin 875 mg PO BID RF: 0 Follow up/Referrals: Jammie Hamm MD [Physician] - 1 Week Provider Discharge Instructions Diet: Diet as Tolerated Skin/Wound/Dressing Care Skin care: Keep wound dry and elevate often. Report to your healthcare provider any signs of infection, such as:: chills, fever, night sweats, increased pain, unusual drainage and unusual redness Visit Report/Discharge Packet Instructions: Rabies, Rabies Vaccine, DI for Animal Bites, How To Perform RICE (Rest, Ice, Compress, Elevate), DI for Dog Bite Discharge Data Attending Provider: Cecilia Joseph Admit Date/Time: 05/12/18 15:30 Quality VTE Deep Vein Thrombosis/Pulmonary Embolism Present on Admission: No
[2018-05-14] MEDS: levoFLOXacin 250 MG TABLET 750 MG PO (11:10)
--- NOTE | 2018-05-14 12:56 | PC.NURSE ---
Pt has been discharged home. Scripts sent to [facility] and pt has been given information. Now on PO abx. Dressed and waiting for her ride home.
== END 2018-05-14 13:19 | disposition home or self-care (01) | DRG 603 ==
PROVIDERS: Admitting Provider Internal Medicine; Visit Provider Internal Medicine
DX: L03.115 Cellulitis of right lower limb (principal); K52.831 Collagenous colitis; F41.9 Anxiety disorder, unspecified; W54.0XXA Bitten by dog, initial encounter; Y92.830 Public park as the place of occurrence of the external cause; F32.9 Major depressive disorder, single episode, unspecified; S80.11XA Contusion of right lower leg, initial encounter
CPT/HCPCS: 36415; 80048; 80053; 84145; 85025; 87493; 99231; 99232; 99252; J0696; J1644

== ENCOUNTER → 2018-06-22 15:03 | Outpatient (CLI) | payer OTHER, SELFPAY ==
[2018-06-22 16:04] LABS: Clostridium Difficile Tox PCR Positive for C. diff
== END ==
PROVIDERS: Visit Provider Internal Medicine
DX: R19.7 Diarrhea, unspecified (principal)
CPT/HCPCS: 87493

== ENCOUNTER → 2019-01-19 13:12 | Outpatient (CLI) | payer OTHER, SELFPAY ==
[2018-09-08 12:01] VITALS: BMI 17.2
== END ==
PROVIDERS: PCP Internal Medicine; Visit Provider Internal Medicine
DX: M81.0 Age-related osteoporosis without current pathological fracture (principal); Z78.0 Asymptomatic menopausal state; Z82.62 Family history of osteoporosis
CPT/HCPCS: 77080

== ENCOUNTER → 2019-02-06 11:26 | Outpatient (CLI) | payer OTHER, SELFPAY ==
[2018-09-08 12:01] VITALS: BMI 17.2
--- NOTE | 2019-02-06 | DI.MG.S_ITS ---
BILATERAL DIGITAL SCREENING MAMMOGRAM 3D/2D WITH CAD: 02/06/2019 CLINICAL: Routine screening. Family history of breast cancer. Comparison is made to exams dated: 04/26/2017 mammogram, 03/28/2015 mammogram, and 01/29/2014 mammogram - [facility]. The tissue of both breasts is heterogeneously dense. This may lower the sensitivity of mammography. Current study was also evaluated with a Computer Aided Detection (CAD) system. There are benign vascular calcifications in both breasts. No significant masses, calcifications, or other findings are seen in either breast. There has been no significant interval change. IMPRESSION: There is no mammographic evidence of malignancy. A 1 year screening mammogram is recommended. This exam was interpreted at Station ID: [id number]. NOTE: For mammograms, a report in lay terms will be sent to the patient. Approximately 15% of breast malignancies will not be visualized mammographically. In the management of a palpable breast mass, a negative mammogram must not discourage biopsy of a clinically suspicious lesion. Electronically Signed By: Juanis garza/lucius:02/06/2019 12:28:52 letter sent: Normal Exam ACR BI-RADS Category 2: Benign Finding(s) 3342F
== END ==
PROVIDERS: PCP Internal Medicine; Visit Provider Internal Medicine
DX: Z12.31 Encounter for screening mammogram for malignant neoplasm of breast (principal); Z80.3 Family history of malignant neoplasm of breast
CPT/HCPCS: 77063; 77067

== ENCOUNTER → 2019-11-13 09:32 | Outpatient (CLI) | payer OTHER, SELFPAY ==
[2018-09-08 12:01] VITALS: BMI 17.2
[2019-11-13 10:19] LABS: Add Manual Diff / Slide Review NO; Basophils Absolute Auto 0 /uL (0-100); Basophils Percent Auto 0.5 % (0-2); Eosinophils Absolute Auto 100 /uL (0-450); Hematocrit 40.6 % (36-46); Hemoglobin 13.6 g/dL (12.0-16.0); Lymphocytes Absolute Auto 1100 /uL (1100-4500); Lymphocytes Percent Auto 22.3 % (25-40); Mean Corpuscular HGB Conc 33.4 % (30-36); Mean Corpuscular Hemoglobin 32.1 PG (26-34); Monocytes Absolute Auto 400 /uL (0-900); Monocytes Percent Auto 7.8 % (3-14); Neutrophils Absolute Auto 3400 /uL (1500-7000); Neutrophils Percent Auto 67.4 % (50-75); Platelet Count 181 X10^3/uL (150-400); Red Blood Cell Count 4.22 X10^6/uL (4.0-5.2); Red Cell Distribution Width 13.1 % (11.6-14.8)
[2019-11-13 10:39] LABS: Alanine Aminotransferase 21 IU/L (<35); Albumin 4.8 g/dL (3.5-5.0); Blood Urea Nitrogen 18 mg/dL (7-17); Calcium 9.5 mg/dL (8.4-10.2); Carbon Dioxide 31 mmol/L (22-32); Chloride 101 mmol/L (98-107); Estimated Glomerular Filt Rate > 60.0 mL/min (>60); Glucose 98 mg/dL (80-110); HEMOLYSIS < 15 (0-50); Potassium 4.2 mmol/L (3.4-5.1); Sodium 138 mmol/L (137-145)
[2019-11-13 10:56] LABS: Vitamin D 25 Hydroxy (D3) 54.3 ng/mL (30.0-100.0)
[2019-11-14 07:56] LABS: Parathyroid Hormone Int 28 pg/mL (15-65)
[2019-11-15 13:17] LABS: N-Telopeptide 9.7 nmol BCE/L (6.2-19.0)
== END ==
PROVIDERS: PCP Internal Medicine; Referring Provider Internal Medicine Endocrinology, Diabetes & Metabolism; Visit Provider Internal Medicine Endocrinology, Diabetes & Metabolism
DX: M81.0 Age-related osteoporosis without current pathological fracture (principal)
CPT/HCPCS: 36415; 80069; 82306; 82523; 83970; 84460; 85025

== ENCOUNTER → 2020-02-20 12:49 | Outpatient (CLI) | payer OTHER, SELFPAY ==
[2018-09-08 12:01] VITALS: BMI 17.2
--- NOTE | 2020-02-20 | DI.MG.S_ITS ---
BILATERAL DIGITAL SCREENING MAMMOGRAM 3D/2D WITH CAD: 02/20/2020 CLINICAL: Routine screening. Family history of breast cancer. Comparison is made to exams dated: 02/06/2019 mammogram - [facility], 04/26/2017 mammogram, and 03/28/2015 mammogram - [facility]. The tissue of both breasts is heterogeneously dense. This may lower the sensitivity of mammography. Current study was also evaluated with a Computer Aided Detection (CAD) system. There are benign vascular calcifications in both breasts. No significant masses, calcifications, or other findings are seen in either breast. There has been no significant interval change. IMPRESSION: BENIGN There is no mammographic evidence of malignancy. A 1 year screening mammogram is recommended. This exam was interpreted at Station ID: [id number]. NOTE: For mammograms, a report in lay terms will be sent to the patient. Approximately 15% of breast malignancies will not be visualized mammographically. In the management of a palpable breast mass, a negative mammogram must not discourage biopsy of a clinically suspicious lesion. Electronically Signed By: Kailee larsen/lucius:02/20/2020 16:00:34 letter sent: Normal Exam ACR BI-RADS Category 2: Benign Finding(s) 3342F
== END ==
PROVIDERS: PCP Internal Medicine; Referring Provider Internal Medicine; Visit Provider Internal Medicine
DX: Z12.31 Encounter for screening mammogram for malignant neoplasm of breast (principal); Z80.3 Family history of malignant neoplasm of breast; M81.0 Age-related osteoporosis without current pathological fracture; Z78.0 Asymptomatic menopausal state; Z82.62 Family history of osteoporosis
CPT/HCPCS: 77063; 77067; 77080

== ENCOUNTER → 2020-09-16 10:41 | Outpatient (CLI) | payer OTHER, SELFPAY ==
[2018-09-08 12:01] VITALS: BMI 17.2
--- NOTE | 2020-09-16 | DI.RAD.S_ITS ---
PROCEDURE: XR WRIST LT MIN 3V INDICATIONS: Pain in left wrist TECHNIQUE: For views of the wrist were acquired. COMPARISON: None. FINDINGS: Bones: No fractures or dislocations. No suspicious bony lesions. Scaphoid view: Mild arthritic change but no trauma found. Soft tissues: No suspicious soft tissue calcifications. IMPRESSION: Mild arthritic change but no trauma found. 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 Dictated by: Karlo Catalan M.D. on 09/16/2020 at 12:37 Approved by: Karlo Catalan M.D. on 09/16/2020 at 12:37
== END ==
PROVIDERS: PCP Internal Medicine; Referring Provider Internal Medicine; Visit Provider Internal Medicine
DX: M25.532 Pain in left wrist (principal); M19.032 Primary osteoarthritis, left wrist
CPT/HCPCS: 73110

== ENCOUNTER → 2021-02-24 13:29 | Outpatient (CLI) | payer OTHER, SELFPAY ==
[2018-09-08 12:01] VITALS: BMI 17.2
--- NOTE | 2021-02-24 13:31 | DI.MG.S_ITS ---
BILATERAL DIGITAL SCREENING MAMMOGRAM 3D/2D WITH CAD: 02/24/2021 CLINICAL: Routine screening. Family history of breast cancer. Comparison is made to exams dated: 02/20/2020 mammogram, 02/06/2019 mammogram - [facility], and 04/26/2017 mammogram - [facility]. The tissue of both breasts is heterogeneously dense. This may lower the sensitivity of mammography. Current study was also evaluated with a Computer Aided Detection (CAD) system. There are benign vascular calcifications in both breasts. No significant masses, calcifications, or other findings are seen in either breast. There has been no significant interval change. IMPRESSION: BENIGN There is no mammographic evidence of malignancy. A 1 year screening mammogram is recommended. This exam was interpreted at Station ID: [id number]. NOTE: For mammograms, a report in lay terms will be sent to the patient. Approximately 15% of breast malignancies will not be visualized mammographically. In the management of a palpable breast mass, a negative mammogram must not discourage biopsy of a clinically suspicious lesion. Electronically Signed By: Haile rodriges/lucius:02/24/2021 14:01:37 letter sent: Normal Exam ACR BI-RADS Category 2: Benign Finding(s) 3342F
== END ==
PROVIDERS: PCP Internal Medicine; Referring Provider Internal Medicine; Visit Provider Internal Medicine
DX: Z12.31 Encounter for screening mammogram for malignant neoplasm of breast (principal); Z80.3 Family history of malignant neoplasm of breast
CPT/HCPCS: 77063; 77067

== ENCOUNTER → 2022-04-29 12:33 | Outpatient (CLI) | payer OTHER, SELFPAY ==
[2018-09-08 12:01] VITALS: BMI 17.2
--- NOTE | 2022-04-29 | DI.MG.S_ITS ---
BILATERAL DIGITAL SCREENING MAMMOGRAM 3D/2D WITH CAD: 04/29/2022 CLINICAL: Routine screening. Family history of breast cancer. Comparison is made to exams dated: 02/24/2021 mammogram, 02/20/2020 mammogram, and 02/06/2019 mammogram - [facility]. Both breasts are heterogeneously dense, which may obscure small masses (category c / 51-75% glandular tissue). Current study was also evaluated with a Computer Aided Detection (CAD) system. There is a possible new asymmetry in the right breast at 3 o'clock middle depth. No other significant masses, calcifications, or other findings are seen in either breast. IMPRESSION: INCOMPLETE: NEEDS ADDITIONAL IMAGING EVALUATION The possible new asymmetry in the right breast is indeterminate. Additional views with possible ultrasound are recommended. Based on Tyrer-Cuzick model (a risk assessment model), the patient's lifetime risk is 22.3% and her 10 year risk is 10.4%. If a patient has an elevated risk, a more comprehensive evaluation should be considered and/or a referral to a genetic counselor. The [employer], [employer], and NCCN Guidelines advise the consideration of Breast MRI as an adjunct to screening mammography in patients whose Lifetime risk to develop breast cancer is 20% or higher. This exam was interpreted at Station ID: [id number]. NOTE: For mammograms, a report in lay terms will be sent to the patient. Approximately 15% of breast malignancies will not be visualized mammographically. In the management of a palpable breast mass, a negative mammogram must not discourage biopsy of a clinically suspicious lesion. Electronically Signed By: Oziel Banegas M.D., jr/lucius:04/29/2022 15:48:03 letter sent: Additional Imaging Needed ACR BI-RADS Category 0: Incomplete 3340F
== END ==
PROVIDERS: PCP Internal Medicine; Referring Provider Internal Medicine; Visit Provider Internal Medicine
DX: Z12.31 Encounter for screening mammogram for malignant neoplasm of breast (principal); Z80.3 Family history of malignant neoplasm of breast
CPT/HCPCS: 77063; 77067

== ENCOUNTER → 2022-05-20 08:45 | Outpatient (CLI) | payer OTHER, SELFPAY ==
[2018-09-08 12:01] VITALS: BMI 17.2
--- NOTE | 2022-05-20 | DI.MG.S_ITS ---
UNILATERAL RIGHT DIGITAL DIAGNOSTIC MAMMOGRAM 3D/2D WITH ADDITIONAL VIEWS: 05/20/2022 CLINICAL: Additional evaluation requested from prior study. Comparison is made to exams dated: 04/29/2022 mammogram, 02/24/2021 mammogram, 02/20/2020 mammogram, and 02/06/2019 mammogram - [facility]. The right breast is heterogeneously dense, which may obscure small masses (category c / 51-75% glandular tissue). The possible asymmetry in the right breast at 2 o'clock middle depth is not reproduced and presumably represented superimposed breast tissue. No other significant masses or calcifications are seen in the breast. IMPRESSION: NEGATIVE There is no mammographic evidence of malignancy. Return to annual mammogram screening schedule is recommended. Based on Tyrer-Cuzick model (a risk assessment model), the patient's lifetime risk is 22.3% and her 10 year risk is 10.4%. If a patient has an elevated risk, a more comprehensive evaluation should be considered and/or a referral to a genetic counselor. The [employer], [employer], and NCCN Guidelines advise the consideration of Breast MRI as an adjunct to screening mammography in patients whose Lifetime risk to develop breast cancer is 20% or higher. This exam was interpreted at Station ID: [id number]. NOTE: For mammograms, a report in lay terms will be sent to the patient. Approximately 15% of breast malignancies will not be visualized mammographically. In the management of a palpable breast mass, a negative mammogram must not discourage biopsy of a clinically suspicious lesion. Electronically Signed By: Haile rodriges/lucius:05/20/2022 09:05:29 letter sent: Normal Exam ACR BI-RADS Category 1: Negative 3341F
== END ==
PROVIDERS: PCP Internal Medicine; Referring Provider Internal Medicine; Visit Provider Internal Medicine
DX: R92.8 Other abnormal and inconclusive findings on diagnostic imaging of breast (principal)
CPT/HCPCS: 77065; G0279

== ENCOUNTER → 2023-03-23 09:06 | Outpatient (CLI) | payer OTHER, SELFPAY ==
[2018-09-08 12:01] VITALS: BMI 17.2
[2023-03-23 10:22] LABS: Add Manual Diff / Slide Review NO; Basophils Absolute Auto 0 /uL (0-100); Basophils Percent Auto 0.7 % (0-2); Eosinophils Absolute Auto 100 /uL (0-450); Eosinophils Percent Auto 2.6 % (2-4); Hematocrit 38.2 % (36-46); Hemoglobin 13.1 g/dL (12.0-16.0); Lymphocytes Absolute Auto 1000 /uL (1100-4500); Mean Corpuscular HGB Conc 34.2 % (30-36); Mean Corpuscular Hemoglobin 33.2 PG (26-34); Mean Corpuscular Volume 96.9 fL (80-100); Monocytes Absolute Auto 300 /uL (0-900); Neutrophils Absolute Auto 2700 /uL (1500-7000); Neutrophils Percent Auto 65.7 % (50-75); Platelet Count 162 X10^3/uL (150-400); Red Blood Cell Count 3.95 X10^6/uL (4.0-5.2); Red Cell Distribution Width 12.7 % (11.6-14.8); White Blood Cell Count 4.2 X10^3/uL (4.5-11.0)
[2023-03-23 11:02] LABS: Alanine Aminotransferase 23 IU/L (<35); Albumin 4.4 g/dL (3.5-5.0); Albumin Globulin Ratio 1.6 (1.0-2.8); Alkaline Phosphatase 55 U/L (38-126); Aspartate Aminotransferase 30 IU/L (14-36); BUN Creatinine Ratio 20.3 (6-22); Bilirubin Total 0.8 mg/dL (0.2-1.3); Blood Urea Nitrogen 15 mg/dL (7-17); Calcium 9.2 mg/dL (8.4-10.2); Carbon Dioxide 26 mmol/L (22-32); Chloride 103 mmol/L (98-107); Cholesterol 248 mg/dL (140-199); Estimated Glomerular Filt Rate > 60 mL/min (>60); Globulin 2.7 g/dL (1.7-4.1); Glucose 95 mg/dL (80-110); HDL Cholesterol 89 mg/dL (40-60); HEMOLYSIS < 15 (0-50); LDL Cholesterol Calculated 143 mg/dL (<100); Potassium 4.2 mmol/L (3.4-5.1); Sodium 138 mmol/L (137-145); Total Protein 7.1 g/dL (6.3-8.2); Triglycerides 78 mg/dL (35-150)
[2023-03-24 17:43] LABS: HIV 1 & 2 Ab/Ag 4th Gen Combo NEGATIVE (NEGATIVE); Hep C Virus Ab w/Reflex Quant NEGATIVE s/c (NEGATIVE)
== END ==
PROVIDERS: PCP Family Medicine; Referring Provider Family Medicine; Visit Provider Family Medicine
DX: Z13.9 Encounter for screening, unspecified (principal); Z13.220 Encounter for screening for lipoid disorders; Z11.4 Encounter for screening for human immunodeficiency virus [HIV]; Z11.59 Encounter for screening for other viral diseases; K52.831 Collagenous colitis; K58.1 Irritable bowel syndrome with constipation
CPT/HCPCS: 36415; 80053; 80061; 85025; 86803; 87389

== ENCOUNTER → 2023-03-24 10:39 | Outpatient (CLI) | payer OTHER, SELFPAY ==
[2018-09-08 12:01] VITALS: BMI 17.2
[2023-03-25 16:58] LABS: Fecal Immunochemical Test Negative (Negative)
== END ==
LOC: LAB 10:40
PROVIDERS: PCP Family Medicine; Referring Provider Family Medicine; Visit Provider Family Medicine
DX: Z13.9 Encounter for screening, unspecified (principal); Z12.11 Encounter for screening for malignant neoplasm of colon; K52.831 Collagenous colitis; K58.1 Irritable bowel syndrome with constipation
CPT/HCPCS: 82274

== ENCOUNTER → 2023-03-31 14:41 | Outpatient (CLI) | payer OTHER, SELFPAY ==
[2018-09-08 12:01] VITALS: BMI 17.2
--- NOTE | 2023-03-31 14:44 | DI.RAD.S_ITS ---
PROCEDURE: XR HIP W PEL IF DONE LT 2V INDICATIONS: hip pain TECHNIQUE: AP pelvis with lateral view(s) of the left hip(s). COMPARISON: [facility], CR, XR LUMBAR SPINE MIN 4V, 03/31/2023, 14:46. FINDINGS: Bones: No fractures or dislocations. Pelvic ring appears intact. No suspicious bony lesions. Mild symmetric axial hip joint space narrowing with minimal periarticular osteophyte formation. Soft tissues: The visualized bowel gas pattern is normal. No suspicious soft tissue calcifications. IMPRESSION: 1. Mild symmetric hip joint degeneration. If pain persist with conservative management, consider cross-sectional imaging such as CT or MRI. Dictated by: Onur Worley [facility] Interpreted: Preeti Steiner MD on 03/31/2023 at 15:04 Transcribed by: CARLTON on 03/31/2023 at 15:05 Approved by: Preeti Steiner M.D. on 03/31/2023 at 17:25
--- NOTE | 2023-03-31 14:44 | DI.RAD.S_ITS ---
PROCEDURE: XR LUMBAR SPINE MIN 4V INDICATIONS: back, hip pain TECHNIQUE: 5 views of the lumbar spine acquired, including flexion and extension views. COMPARISON: None. FINDINGS: Bones: 5 nonrib-bearing vertebrae are present. There is normal bony alignment. No vertebral body compression fractures. No suspicious bony lesions. Minimal disc height loss at the L5-S1 level. Oblique views demonstrate no definitive pars interarticularis defects. Soft tissues: Overlying bowel gas pattern is normal. No suspicious soft tissue calcifications. IMPRESSION: 1. Minimal L5-S1 disc degeneration. Dictated by: Onur Worley [facility] Interpreted: Preeti Steiner MD on 03/31/2023 at 14:55 Transcribed by: CARLTON on 03/31/2023 at 14:57 Approved by: Preeti Steiner M.D. on 03/31/2023 at 17:25
== END ==
PROVIDERS: PCP Family Medicine; Referring Provider Family Medicine; Visit Provider Family Medicine
DX: M16.11 Unilateral primary osteoarthritis, right hip (principal); M25.552 Pain in left hip; M81.0 Age-related osteoporosis without current pathological fracture
CPT/HCPCS: 72110; 73502

== ENCOUNTER → 2023-05-11 11:30 | Outpatient (CLI) | payer OTHER, SELFPAY ==
[2018-09-08 12:01] VITALS: BMI 17.2
--- NOTE | 2023-05-11 11:31 | DI.MG.S_ITS ---
BILATERAL DIGITAL SCREENING MAMMOGRAM 3D/2D WITH CAD: 05/11/2023 CLINICAL: Routine screening. Family history of breast cancer. Comparison is made to exams dated: 04/29/2022 mammogram, 02/24/2021 mammogram, 02/20/2020 mammogram - [facility], and 03/28/2015 mammogram - [facility]. Both breasts are heterogeneously dense, which may obscure small masses (category c / 51-75% glandular tissue). Current study was also evaluated with a Computer Aided Detection (CAD) system. There is a benign calcification in the left breast. There also are benign vascular calcifications in the right breast. No significant masses, calcifications, or other findings are seen in either breast. There has been no significant interval change. IMPRESSION: BENIGN There is no mammographic evidence of malignancy. A 1 year screening mammogram is recommended. Based on Tyrer-Cuzick model (a risk assessment model), the patient's lifetime risk is 21.6% and her 10 year risk is 10.4%. If a patient has an elevated risk, a more comprehensive evaluation should be considered and/or a referral to a genetic counselor. The [employer], [employer], and NCCN Guidelines advise the consideration of Breast MRI as an adjunct to screening mammography in patients whose Lifetime risk to develop breast cancer is 20% or higher. This exam was interpreted at Station ID: [id number]. NOTE: For mammograms, a report in lay terms will be sent to the patient. Approximately 15% of breast malignancies will not be visualized mammographically. In the management of a palpable breast mass, a negative mammogram must not discourage biopsy of a clinically suspicious lesion. Electronically Signed By: Shola stone/lucius:05/11/2023 15:47:23 letter sent: Normal Exam ACR BI-RADS Category 2: Benign Finding(s) 3342F
== END ==
LOC: MAMMO 11:30
PROVIDERS: PCP Family Medicine; Referring Provider Family Medicine; Visit Provider Family Medicine
DX: Z12.31 Encounter for screening mammogram for malignant neoplasm of breast (principal); Z80.3 Family history of malignant neoplasm of breast; R92.333 Mammographic heterogeneous density, bilateral breasts
CPT/HCPCS: 77063; 77067

== ENCOUNTER → 2023-10-28 15:02 | Outpatient (CLI) | payer MEDICARE, OTHER, SELFPAY ==
[2018-09-08 12:01] VITALS: BMI 17.2
--- NOTE | 2023-10-28 15:06 | DI.RAD.S_ITS ---
PROCEDURE: XR DEXA AXIAL SKELETON INDICATIONS: Osteoporosis COMPARISON: [facility], CR, XR DEXA AXIAL SKELETON, 02/20/2020, 12:59. FINDINGS: Lumbar Spine: Bone mineral density 0.727 g/cm2, T score -2.9. There is interval 6.1 percent decrease in total lumbar spine bone density. Left Hip: Bone mineral density 0.553 g/cm2, T score -3.2. There is interval 2.3 percent decrease in total left hip bone mineral density. Left Femoral Neck: Bone mineral density 0.509 g/cm2, T score -3.1. There is interval 4.7 percent increase in left femoral neck bone mineral density. Right Hip: Bone mineral density 0.569 g/cm2, T score -3.1. There is interval 3.8 percent increase in total right hip bone mineral density. Right Femoral Neck: Bone mineral density 0.506 g/cm2, T score -3.1. There is interval 4.1 percent increase in right femoral neck bone mineral density. Fracture Risk Calculation (when applicable): 10-year fracture risk of a major osteoporotic fracture 13 percent and of a hip fracture 3.9 percent. (T score greater or equal to -1.0 to: NORMAL) (T score from -1.1 to -2.4: OSTEOPENIA) (T score less than or equal to -2.5: OSTEOPOROSIS) IMPRESSION: Osteoporosis. Follow-up guidelines as follows: Osteoporosis: Consider a repeat DEXA and Vertebral Fracture Assessment (VFA) exam in 2 years or sooner if medically necessary, to reassess this patient's status. Osteopenia: Consider a repeat DEXA in 2-3 years to reassess this patient's status, or if there is a new clinical indication. Normal: Consider a repeat DEXA in 5 years or sooner, or if there is a new clinical indication. All treatment decisions require clinical judgment and consideration of individual patient factors, including patient preferences, comorbidities, previous drug use, risk factors not captured in the FRAX model (e.g., frailty, falls, vitamin D deficiency, increased bone turnover, interval significant decline in bone density ) and possible under- or over-estimation of fracture risk by FRAX. In addition, the NOF Guide recommends that FDA-approved medical therapies be considered in postmenopausal women and men age >= 50 years with a: * Hip or vertebral (clinical or morphometric) fracture * T-score of <=-2.5 at the spine or hip * Ten-year fracture probability by FRAX of >= 3% for hip fracture or >=20% for major osteoporotic fracture. People with diagnosed cases of osteoporosis or at high risk for fracture should have regular bone mineral density tests. For patients eligible for Medicare, routine testing is allowed once every 2 years. The testing frequency can be increased to one year for patients who have rapidly progressing disease, those who are receiving or discontinuing medical therapy to restore bone mass, or have additional risk factors. Dictated by: Malvin Steele M.D. on 10/28/2023 at 17:27 Approved by: Malvin Steele M.D. on 10/28/2023 at 17:29
== END ==
PROVIDERS: PCP Family Medicine; Referring Provider Family Medicine; Visit Provider Family Medicine
DX: M81.0 Age-related osteoporosis without current pathological fracture (principal)
CPT/HCPCS: 77080

== ENCOUNTER → 2023-12-01 13:04 | Outpatient (CLI) | payer MEDICARE, OTHER, SELFPAY ==
[2018-09-08 12:01] VITALS: BMI 17.2
[2023-12-01 15:02] LABS: Erythrocyte Sedimentation Rate 7 MM/HR (0-20)
[2023-12-01 15:04] LABS: Alanine Aminotransferase 33 IU/L (<35); Albumin 4.8 g/dL (3.5-5.0); Albumin Globulin Ratio 1.7 (1.0-2.8); Alkaline Phosphatase 82 U/L (38-126); Aspartate Aminotransferase 38 IU/L (14-36); BUN Creatinine Ratio 32.8 (6-22); Bilirubin Total 0.8 mg/dL (0.2-1.3); Blood Urea Nitrogen 22 mg/dL (7-17); Calcium 9.6 mg/dL (8.4-10.2); Carbon Dioxide 30 mmol/L (22-32); Chloride 101 mmol/L (98-107); Estimated Glomerular Filt Rate > 60 mL/min (>60); Globulin 2.8 g/dL (1.7-4.1); Glucose 90 mg/dL (80-110); HEMOLYSIS < 15 (0-50); Potassium 4.5 mmol/L (3.4-5.1); Sodium 138 mmol/L (137-145); Total Protein 7.6 g/dL (6.3-8.2)
[2023-12-01 15:09] LABS: High Sensitivity CRP - Cardiac < 0.3 mg/L (1.0-3.0)
[2023-12-01 15:37] LABS: Thyroid Stimulating Hormone 0.791 uIU/mL (0.47-4.68)
[2023-12-02 18:10] LABS: SS A Ro Sjogrens Antibody < 0.2 AI (0.0-0.9); SS B La Sjogrens Antibody < 0.2 AI (0.0-0.9)
== END ==
PROVIDERS: PCP Family Medicine; Referring Provider Ophthalmology; Visit Provider Ophthalmology
DX: H05.20 Unspecified exophthalmos (principal); H16.223 Keratoconjunctivitis sicca, not specified as Sjogren's, bilateral
CPT/HCPCS: 36415; 80053; 84443; 85651; 86038; 86140; 86235

== ENCOUNTER → 2024-04-30 15:17 | Outpatient (CLI) | payer MEDICARE, OTHER, SELFPAY ==
[2018-09-08 12:01] VITALS: BMI 17.2
[2024-04-30 16:44] LABS: Albumin 4.8 g/dL (3.5-5.0); BUN Creatinine Ratio 29.7 (6-22); Blood Urea Nitrogen 19 mg/dL (7-17); Calcium 9.2 mg/dL (8.4-10.2); Carbon Dioxide 29 mmol/L (22-32); Chloride 101 mmol/L (98-107); Estimated Glomerular Filt Rate > 60 mL/min (>60); Glucose 93 mg/dL (80-110); HEMOLYSIS < 15 (0-50); Phosphorous 2.9 mg/dL (2.8-4.1); Sodium 139 mmol/L (137-145)
[2024-04-30 17:01] LABS: Vitamin D 25 Hydroxy (D3) 49.1 ng/mL (30.0-100.0)
[2024-04-30 17:15] LABS: TSH w/ Reflex to FT4 1.01 uIU/mL (0.47-4.68)
[2024-05-02 05:12] LABS: Calcium 9.6 mg/dL (8.7-10.3); Parathyroid Hormone, Intact 24 pg/mL (15-65)
[2024-05-04 17:51] LABS: C-Telopeptide, Serum 214 pg/mL (.)
== END ==
PROVIDERS: PCP Family Medicine; Referring Provider Student in an Organized Health Care Education/Training Program; Visit Provider Student in an Organized Health Care Education/Training Program
DX: M81.8 Other osteoporosis without current pathological fracture (principal); M81.0 Age-related osteoporosis without current pathological fracture; M25.552 Pain in left hip
CPT/HCPCS: 36415; 80069; 82306; 82310; 82523; 83970; 84443

== ENCOUNTER → 2024-05-20 11:16 | Outpatient (CLI) | payer MEDICARE, OTHER, SELFPAY ==
[2018-09-08 12:01] VITALS: BMI 17.2
--- NOTE | 2024-05-20 11:20 | DI.MRI.S_ITS ---
PROCEDURE: MR LUMBAR SPINE WO CON INDICATIONS: radiculopathy TECHNIQUE: Noncontrast sagittal T1 spin echo and T2 fast echo, sagittal STIR, and T2 fast spin echo through the lumbar spine. In cases with scoliosis, additional coronal T2 fast spin echo may be performed. COMPARISON: [facility], CR, XR LUMBAR SPINE MIN 4V, 03/31/2023, 14:46. FINDINGS: Image quality: Diagnostic Alignment and Curvature: No spondylolisthesis Bone Marrow: No acute fracture Spinal Cord: Cord terminates in expected position Paraspinous Soft Tissues: No paravertebral abscess T12-L1: No stenosis L1-L2: Minimal diffuse disc bulge. Mild facet arthropathy. No stenosis. L2-L3: Small diffuse disc bulge. Gezo-fv-ojzgewez facet arthropathy. No stenosis L3-L4: Moderate facet arthropathy and small diffuse disc bulge. Mild narrowing of the left subarticular recess. Mild bilateral neural foraminal narrowing. L4-L5: Mild diffuse disc bulge and moderate bilateral facet arthropathy. Mild narrowing of the bilateral subarticular recesses. Ligamentum hypertrophy is more prominent at this level. Gpij-gu-sgeeiolb bilateral neural foraminal narrowing. L5-S1: There is a small diffuse disc bulge and zjam-cp-adujffec facet arthropathy. Mild bilateral neural foraminal narrowing. IMPRESSION: Overall low-grade spondylotic changes as described above, worst at L4-L5. No acute fracture. No critical stenosis. Dictated by: Abdelrahman Malin M.D. on 05/21/2024 at 9:32 Approved by: Abdelrahman Malin M.D. on 05/21/2024 at 9:35
== END ==
PROVIDERS: PCP Family Medicine; Referring Provider Family Medicine; Visit Provider Orthopaedic Surgery
DX: M54.16 Radiculopathy, lumbar region (principal); M47.816 Spondylosis without myelopathy or radiculopathy, lumbar region; M47.817 Spondylosis without myelopathy or radiculopathy, lumbosacral region; M51.379 Other intervertebral disc degeneration, lumbosacral region without mention of lumbar back pain or lower extremity pain; M48.07 Spinal stenosis, lumbosacral region; M51.369 Other intervertebral disc degeneration, lumbar region without mention of lumbar back pain or lower extremity pain; M48.061 Spinal stenosis, lumbar region without neurogenic claudication
CPT/HCPCS: 72148

== ENCOUNTER → 2024-05-23 14:30 | Outpatient (CLI) | payer MEDICARE, OTHER, SELFPAY ==
[2018-09-08 12:01] VITALS: BMI 17.2
--- NOTE | 2024-05-23 14:31 | DI.MG.S_ITS ---
MM screening mammo BI: 05/23/2024. BI-RADS: 1 CLINICAL: 63-year old female for bilateral screening mammogram. Tyrer-Cuzick lifetime risk of 9.9%. Current reported family history of breast cancer: mother. PRIOR EXAMS 05/11/2023, 05/20/2022, 04/29/2022, 02/24/2021, 02/20/2020, 02/06/2019. MAMMOGRAPHY TECHNIQUE: 2D and 3D (tomosynthesis) digital mammographic views obtained, with additional images as needed for full coverage. Current study was also evaluated with a Computer Aided Detection (CAD) system. DENSITY C. The breasts are heterogeneously dense, which may obscure small masses. MAMMOGRAPHY FINDINGS Bilateral: Typically-benign vascular calcifications noted. No suspicious mass, asymmetry, microcalcification, or other abnormality seen. IMPRESSION: * No evidence of malignancy. RECOMMENDATIONS Bilateral * Annual screening mammography. OVERALL ASSESSMENT CATEGORY BI-RADS-1: Negative. The [employer] recommends annual screening mammography beginning at age 40 for women with average risk of breast cancer. ELECTRONICALLY SIGNED: Almaz Nettles M.D. on 05/23/2024 at 04:36:04 PM PT Interpreting Station ID: [id number]
== END ==
PROVIDERS: PCP Family Medicine; Referring Provider Family Medicine; Visit Provider Family Medicine
DX: Z12.31 Encounter for screening mammogram for malignant neoplasm of breast (principal); Z80.3 Family history of malignant neoplasm of breast; R92.333 Mammographic heterogeneous density, bilateral breasts
CPT/HCPCS: 77063; 77067

== ENCOUNTER → 2024-07-05 16:12 | Outpatient (CLI) | payer MEDICARE, OTHER, SELFPAY ==
[2018-09-08 12:01] VITALS: BMI 17.2
--- NOTE | 2024-07-05 16:38 | EKG_ITS ---
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
== END ==
PROVIDERS: PCP Family Medicine; Referring Provider Family Medicine; Visit Provider Family Medicine
DX: Z00.00 Encounter for general adult medical examination without abnormal findings (principal); Z79.899 Other long term (current) drug therapy
CPT/HCPCS: 93005; 93010

== ENCOUNTER → 2025-01-17 16:29 | Outpatient (CLI) | payer MEDICARE, OTHER, SELFPAY ==
[2018-09-08 12:01] VITALS: BMI 17.2
== END ==
PROVIDERS: PCP Family Medicine; Visit Provider Family Medicine
DX: R07.0 Pain in throat (principal)
CPT/HCPCS: 87070